=== PATIENT | male | born 1940 | race Caucasian/White ===

== ENCOUNTER → 2022-06-18 | Outpatient (CLI) | payer MEDICARE, OTHER | LOC: HEART 5 13:51 | DX: R06.00 Dyspnea, unspecified (principal); I48.91 Unspecified atrial fibrillation; I08.8 Other rheumatic multiple valve diseases; I27.20 Pulmonary hypertension, unspecified | CPT/HCPCS: 93306 ==

== ENCOUNTER → 2022-06-22 | Outpatient (CLI) | payer MEDICARE, OTHER | LOC: HEART 5 13:59 | DX: R06.00 Dyspnea, unspecified (principal); R06.83 Snoring; I51.7 Cardiomegaly; R91.8 Other nonspecific abnormal finding of lung field | CPT/HCPCS: 71046; 94060; 94729 ==